=== PATIENT | female | born 1950 | race Two or more races ===

== ENCOUNTER 2017-12-31 18:15 | Emergency (ER) | payer MEDICARE ==
[~2017-12-31] VITALS: Ht 162.6 cm; Wt 72.6 kg
[2017-12-31] MEDS ORDERED: ACETAMINOPHEN 325 MG TAB PO ONE ×2 (18:55→19:00)
[2017-12-31 19:38] LABS: Urine Bacteria FEW /hpf (None Seen); Urine Blood Negative /uL (Negative); Urine Specific Gravity 1.007 (1.001-1.035); Urine WBC 9 /hpf (0 - 5)
[2017-12-31 23:10] VITALS: BP 142/76
[2017-12-31] MEDS ORDERED: KETOROLAC TROMETH 60MG/2ML VIAL IM ONE (23:30)
== END 2017-12-31 23:55 | disposition home or self-care (01) ==
LOC: ER 18:15
DX: N39.0 Urinary tract infection, site not specified (principal); I10 Essential (primary) hypertension; Z90.710 Acquired absence of both cervix and uterus
CPT/HCPCS: 81001; 96372; 99283; J1885

== ENCOUNTER 2023-05-01 19:17 | Inpatient (IN) | payer OTHER, MEDICAID ==
[~2023-05-01] VITALS: Ht 157.5 cm; Wt 68.0 kg
[2023-05-01 20:18] LABS: Basophils # (auto) 0 10 ^3/uL (0-0.2); Eosinophils # (auto) 0.1 10 ^3/uL (0-0.8); Nucleated Red Blood Cells % 0.1 %
[2023-05-01 20:20] LABS: Basophils % (auto) 0.3 % (0.0-2.0); Eosinophils % (auto) 0.5 % (0.0-7.0); Hematocrit 31.7 % (36.0-46.0); Hemoglobin 10.2 g/dL (12.2-16.2); Lymphocytes % (auto) 27.8 % (10.0-50.0); Mean Corpuscular Hemoglobin 23.1 pg (28.0-32.0); Mean Corpuscular Hgb Conc. 32.1 g/dL (32.0-36.0); Mean Corpuscular Volume 72.1 fL (80.0-100.0); Monocytes # (auto) 0.6 10 ^3/uL (0-1.3); Monocytes % (auto) 5.9 % (0.0-12.0); Neutrophils % (auto) 65.5 % (37.0-80.0); Red Cell Distribution Width 15.3 % (11.8-14.3); White Blood Cell 10.7 10^3/uL (4.4-10.8)
[2023-05-01 20:37] LABS: Alanine Aminotransferase 66 U/L (7-40); Albumin 4.5 g/dL (3.2-4.8); Alkaline Phosphatase 60 U/L (46-116); Anion Gap 13 (5-15); Aspartate Aminotransferase 91 U/L (13-40); BUN/Creatinine Ratio 9.8 (10.0-20.0); Bilirubin, Total 0.4 mg/dL (0.2-1.0); Blood Urea Nitrogen 8 mg/dL (9-23); Calcium 8.9 mg/dL (8.7-10.4); Carbon Dioxide 19 mmol/L (20-30); Chloride 83 mmol/L (98-107); Glucose 112 mg/dL (74-106); Magnesium 1.4 mg/dL (1.6-2.6); Potassium 3.9 mmol/L (3.5-5.1); Total Protein 7.2 g/dL (5.7-8.2)
[2023-05-01 20:38] LABS: INR 1.05 (0.9-1.15); Partial Thromboplastin Time 25.8 SEC (24.5-34.5)
[2023-05-01 20:41] LABS: Sodium 115 mmol/L (136-145)
[2023-05-01] MEDS ORDERED: LORazepam 2MG/ML-1ML VIAL IV ONE (20:45)
[2023-05-01] MEDS ORDERED: SODIUM CHLORIDE 0.9% 1,000 ML IV ONE (20:45)
[2023-05-01 21:20] VITALS: PULSE 84; RESP 18; O2SAT 100
[2023-05-02] MEDS ORDERED: ONDANSETRON HCL 4 MG/2 ML VIAL IV ONE
[2023-05-02] MEDS ORDERED: ACETAMINOPHEN 325 MG TAB PO ONE (01:45)
[2023-05-02] MEDS ORDERED: ONDANSETRON HCL 4 MG/2 ML VIAL IV PRN (02:00)
[2023-05-02] MEDS ORDERED: ACETAMINOPHEN 325 MG TAB PO PRN (02:00)
[2023-05-02] MEDS: SODIUM CHLORIDE 0.9% 1,000 ML IV SCH ×2 (02:17→12:00)
[2023-05-02 02:56] LABS: Chloride 90 mmol/L (98-107); Potassium 3.7 mmol/L (3.5-5.1)
[2023-05-02 02:57] LABS: Anion Gap 8 (5-15); Calcium 8.3 mg/dL (8.7-10.4); Carbon Dioxide 24 mmol/L (20-30)
[2023-05-02 03:02] LABS: Glucose 102 mg/dL (74-106)
[2023-05-02 03:07] LABS: Urine Bacteria NONE SEEN /hpf (None Seen); Urine Blood Negative /uL (Negative); Urine Clarity Clear (Clear); Urine Color Colorless (Yellow); Urine Protein, UAD Negative (Negative); Urine Specific Gravity 1.004 (1.001-1.035); Urine Urobilinogen Normal (Negative); Urine WBC <1 /hpf (0 - 5)
[2023-05-02 03:27] LABS: BUN/Creatinine Ratio 6.8 (10.0-20.0); Blood Urea Nitrogen < 5 mg/dL (9-23); Sodium 122 mmol/L (136-145)
[2023-05-02 03:49] LABS: COVID19 ANTIGEN SOFIA FIA NEGATIVE (NEGATIVE); Rapid Influenza A Negative (Negative); Rapid Influenza B Negative (Negative)
[2023-05-02 05:50] LABS: Anion Gap 9 (5-15); Carbon Dioxide 24 mmol/L (20-30); Chloride 91 mmol/L (98-107); Potassium 3.6 mmol/L (3.5-5.1); Sodium 124 mmol/L (136-145)
[2023-05-02 05:51] LABS: Calcium 8.8 mg/dL (8.5-10.1)
[2023-05-02 05:56] LABS: Glucose 89 mg/dL (74-106)
[2023-05-02 06:11] LABS: BUN/Creatinine Ratio 7.1 (10.0-20.0); Blood Urea Nitrogen < 5 mg/dL (9-23)
[2023-05-02 10:38] LABS: Anion Gap 6 (5-15); Carbon Dioxide 28 mmol/L (20-30); Chloride 94 mmol/L (98-107); Potassium 3.6 mmol/L (3.5-5.1); Sodium 128 mmol/L (136-145)
[2023-05-02 10:39] LABS: Calcium 9.1 mg/dL (8.5-10.1)
[2023-05-02 10:44] LABS: BUN/Creatinine Ratio 7.4 (10.0-20.0); Blood Urea Nitrogen 5 mg/dL (9-23); Glucose 103 mg/dL (74-106)
[2023-05-02] MEDS ORDERED: DESMOPRESSIN ACET 4 MCG/1 ML AMPULE IV SCH (11:15)
[2023-05-02] MEDS: D5W 5% 1,000 ML IV SCH ×2 (11:43→18:02)
[2023-05-02 14:49] LABS: Chloride 94 mmol/L (98-107); Potassium 3.8 mmol/L (3.5-5.1); Sodium 127 mmol/L (136-145)
[2023-05-02 14:50] LABS: Anion Gap 6 (5-15); Calcium 9.2 mg/dL (8.5-10.1); Carbon Dioxide 27 mmol/L (20-30)
[2023-05-02 14:55] LABS: Glucose 108 mg/dL (74-106)
[2023-05-02 15:04] LABS: BUN/Creatinine Ratio 6.4 (10.0-20.0); Blood Urea Nitrogen < 5 mg/dL (9-23)
[2023-05-02 18:36] LABS: Anion Gap 7 (5-15); Calcium 8.5 mg/dL (8.7-10.4); Carbon Dioxide 25 mmol/L (20-30); Chloride 93 mmol/L (98-107); Potassium 3.7 mmol/L (3.5-5.1); Sodium 125 mmol/L (136-145)
[2023-05-02 18:42] LABS: BUN/Creatinine Ratio 7.9 (10.0-20.0); Blood Urea Nitrogen 6 mg/dL (9-23); Glucose 128 mg/dL (74-106)
[2023-05-02 19:30] VITALS: PULSE 88; RESP 19; O2SAT 100
[2023-05-02] MEDS ORDERED: D5W 5% 1,000 ML IV SCH (22:00)
[2023-05-02 22:41] LABS: Chloride 90 mmol/L (98-107); Potassium 3.5 mmol/L (3.5-5.1); Sodium 122 mmol/L (136-145)
[2023-05-02 22:42] LABS: Anion Gap 7 (5-15); Carbon Dioxide 25 mmol/L (20-30)
[2023-05-02 22:43] LABS: Calcium 8.5 mg/dL (8.7-10.4)
[2023-05-02 22:47] LABS: Glucose 120 mg/dL (74-106)
[2023-05-02 22:48] LABS: BUN/Creatinine Ratio 9.3 (10.0-20.0); Blood Urea Nitrogen 7 mg/dL (9-23)
[2023-05-02] MEDS ORDERED: SODIUM CHLORIDE 0.9% 1,000 ML IV SCH (23:30)
[2023-05-03] VITALS (13 sets, daily range): BP systolic 123–143; BP diastolic 48–70; PULSE 67–78; RESP 10–18; TEMP 98–98.2; O2SAT 94–100
[2023-05-03 02:25] LABS: Chloride 92 mmol/L (98-107); Potassium 3.7 mmol/L (3.5-5.1); Sodium 121 mmol/L (136-145)
[2023-05-03 02:26] LABS: Anion Gap 4 (5-15); Carbon Dioxide 25 mmol/L (20-30)
[2023-05-03 02:31] LABS: Blood Urea Nitrogen 6 mg/dL (9-23); Glucose 100 mg/dL (74-106)
[2023-05-03 07:17] LABS: Chloride 92 mmol/L (98-107); Potassium 3.4 mmol/L (3.5-5.1); Sodium 123 mmol/L (136-145)
[2023-05-03 07:18] LABS: Anion Gap 5 (5-15); Calcium 8.5 mg/dL (8.5-10.1); Carbon Dioxide 26 mmol/L (20-30)
[2023-05-03 07:24] LABS: BUN/Creatinine Ratio 11.7 (10.0-20.0); Blood Urea Nitrogen 7 mg/dL (9-23); Glucose 113 mg/dL (74-106)
[2023-05-03] MEDS ORDERED: POTASSIUM CHL 20 Meq TABLET PO ONE (09:00)
[2023-05-03 10:39] LABS: Chloride 90 mmol/L (98-107); Potassium 3.5 mmol/L (3.5-5.1); Sodium 122 mmol/L (136-145)
[2023-05-03 10:40] LABS: Anion Gap 8 (5-15); Carbon Dioxide 24 mmol/L (20-30)
[2023-05-03 10:41] LABS: Calcium 8.5 mg/dL (8.5-10.1)
[2023-05-03 10:45] LABS: Glucose 168 mg/dL (74-106)
[2023-05-03 10:46] LABS: BUN/Creatinine Ratio 9.8 (10.0-20.0); Blood Urea Nitrogen 6 mg/dL (9-23)
[2023-05-03] MEDS: SODIUM CHLORIDE 0.9% 1,000 ML IV SCH (12:45)
[2023-05-03 14:58] LABS: Chloride 91 mmol/L (98-107); Potassium 4.2 mmol/L (3.5-5.1); Sodium 122 mmol/L (136-145)
[2023-05-03 14:59] LABS: Anion Gap 5 (5-15); Calcium 8.5 mg/dL (8.7-10.4); Carbon Dioxide 26 mmol/L (20-30)
[2023-05-03 15:04] LABS: BUN/Creatinine Ratio 7.8 (10.0-20.0); Blood Urea Nitrogen 5 mg/dL (9-23); Glucose 149 mg/dL (74-106)
[2023-05-03 19:41] LABS: Chloride 94 mmol/L (98-107); Potassium 4.2 mmol/L (3.5-5.1); Sodium 125 mmol/L (136-145)
[2023-05-03 19:42] LABS: Anion Gap 4 (5-15); Carbon Dioxide 27 mmol/L (20-30)
[2023-05-03 19:43] LABS: Calcium 8.8 mg/dL (8.7-10.4)
[2023-05-03 19:47] LABS: BUN/Creatinine Ratio 8.3 (10.0-20.0); Blood Urea Nitrogen 6 mg/dL (9-23); Glucose 113 mg/dL (74-106)
[2023-05-03 23:58] LABS: Chloride 97 mmol/L (98-107); Potassium 4.1 mmol/L (3.5-5.1); Sodium 127 mmol/L (136-145)
[2023-05-03 23:59] LABS: Anion Gap 5 (5-15); Carbon Dioxide 25 mmol/L (20-30)
[2023-05-04] LABS: Calcium 8.5 mg/dL (8.7-10.4)
[2023-05-04 00:05] LABS: Glucose 121 mg/dL (74-106)
[2023-05-04 00:11] LABS: BUN/Creatinine Ratio 7.8 (10.0-20.0); Blood Urea Nitrogen < 5 mg/dL (9-23)
[2023-05-04] MEDS: SODIUM CHLORIDE 0.9% 1,000 ML IV SCH (02:32)
[2023-05-04 08:00] VITALS: PULSE 70; RESP 15; TEMP 98.3; O2SAT 96
[2023-05-04 09:37] LABS: Chloride 102 mmol/L (98-107); Potassium 4.2 mmol/L (3.5-5.1)
[2023-05-04 09:38] LABS: Anion Gap 9 (5-15); Carbon Dioxide 23 mmol/L (20-30)
[2023-05-04 09:43] LABS: Glucose 119 mg/dL (74-106)
[2023-05-04 09:47] LABS: Sodium 134 mmol/L (136-145)
[2023-05-04 09:48] LABS: BUN/Creatinine Ratio 7.8 (10.0-20.0); Blood Urea Nitrogen < 5 mg/dL (9-23)
[2023-05-04 13:30] VITALS: BP 138/60; PULSE 75; RESP 17; O2SAT 94
== END 2023-05-04 13:40 | disposition home health service (06) | DRG 641 ==
LOC: EDBD 19:17 → EDUNIT# 19:17 → ER 19:17 → TELE 05-02 02:06
PROVIDERS: ADMIT Internal Medicine; ATTEND Internal Medicine
DX: E87.1 Hypo-osmolality and hyponatremia (principal); N39.0 Urinary tract infection, site not specified; I10 Essential (primary) hypertension; E78.5 Hyperlipidemia, unspecified; R53.81 Other malaise; Z20.822 Contact with and (suspected) exposure to COVID-19; E11.9 Type 2 diabetes mellitus without complications; Z87.440 Personal history of urinary (tract) infections; Z90.710 Acquired absence of both cervix and uterus
CPT/HCPCS: 36415; 71045; 74176; 80048; 80053; 81001; 82533; 82962; 83735; 83880; 83930; 84443; 84484; 84550; 85025; 85379; 85610; 85730; 87426; 87804; 93005; 96361; 96374; 96375; G0378; J2405

== ENCOUNTER 2023-06-22 16:27 | Inpatient (IN) | payer OTHER, MEDICAID ==
[~2023-06-22] VITALS: Ht 160 cm; Wt 66.0 kg
[2023-06-22 18:16] LABS: Urine Bacteria FEW /hpf (None Seen); Urine Blood Negative /uL (Negative); Urine Clarity Clear (Clear); Urine Color Colorless (Yellow); Urine Protein, UAD Negative (Negative); Urine Specific Gravity 1.003 (1.001-1.035); Urine Urobilinogen Normal (Negative); Urine WBC 9 /hpf (0 - 5); Urine pH 6.5 (5.0-8.0)
[2023-06-22 18:16] LABS: Basophils # (auto) 0.1 10 ^3/uL (0-0.2); Basophils % (auto) 0.8 % (0.0-2.0); Lymphocytes # (auto) 3.2 10 ^3/uL (0.4-5.4); Mean Corpuscular Volume 61.8 fL (80.0-100.0); Neutrophils # (auto) 4.8 10 ^3/uL (1.6-8.6); Neutrophils % (auto) 54.8 % (37.0-80.0); Nucleated Red Blood Cells % 0.2 %; White Blood Cell 8.8 10^3/uL (4.4-10.8)
[2023-06-22 18:18] LABS: Eosinophils # (auto) 0.1 10 ^3/uL (0-0.8); Eosinophils % (auto) 1.3 % (0.0-7.0); Hematocrit 21.8 % (36.0-46.0); Lymphocytes % (auto) 36.6 % (10.0-50.0); Mean Corpuscular Hemoglobin 17.9 pg (28.0-32.0); Monocytes # (auto) 0.6 10 ^3/uL (0-1.3); Monocytes % (auto) 6.5 % (0.0-12.0); Red Blood Cells 3.53 10^6/uL (4.0-5.20)
[2023-06-22 18:24] LABS: Red Cell Distribution Width 21.2 % (11.8-14.3)
[2023-06-22 18:30] LABS: Hemoglobin 6.3 g/dL (12.2-16.2)
[2023-06-22 18:34] LABS: Alanine Aminotransferase 37 U/L (7-40); Albumin 4.7 g/dL (3.2-4.8); Alkaline Phosphatase 88 U/L (46-116); Anion Gap 10 (5-15); Aspartate Aminotransferase 46 U/L (13-40); BUN/Creatinine Ratio 14.1 (10.0-20.0); Blood Urea Nitrogen 12 mg/dL (9-23); Calcium 9.7 mg/dL (8.5-10.1); Carbon Dioxide 25 mmol/L (20-30); Chloride 102 mmol/L (98-107); Glucose 94 mg/dL (74-106); Potassium 4.3 mmol/L (3.5-5.1); Sodium 137 mmol/L (136-145)
[2023-06-22 18:35] LABS: Bilirubin, Total 0.4 mg/dL (0.2-1.0); Total Protein 7.3 g/dL (5.7-8.2)
[2023-06-22] MEDS ORDERED: ACETAMINOPHEN 325 MG TAB PO PRN (19:45)
[2023-06-22] MEDS ORDERED: ONDANSETRON HCL 4 MG/2 ML VIAL IV PRN ×2 (19:45→21:45)
[2023-06-22] MEDS ORDERED: SODIUM CHLORIDE 0.9% 1,000 ML IV SCH (19:45)
[2023-06-22] MEDS ORDERED: levoFLOXacin 500MG 100 ML IV ONE (19:45)
[2023-06-22 19:52] LABS: Anisocytosis Slight; Hypochromia Marked; Platelet Estimate Adequate
[2023-06-22] MEDS: cefTRIAXone 1GM/50ML D5W 50 ML IV ONE (21:05)
[2023-06-22 22:12] LABS: % Iron Saturation 2.7 % (15-50)
[2023-06-22 22:20] LABS: Monocytes # (auto) 0.5 10 ^3/uL (0-1.3); Neutrophils # (auto) 4.5 10 ^3/uL (1.6-8.6)
[2023-06-22 22:21] LABS: Basophils # (auto) 0 10 ^3/uL (0-0.2); Basophils % (auto) 0.5 % (0.0-2.0); Eosinophils # (auto) 0.1 10 ^3/uL (0-0.8); Eosinophils % (auto) 1.8 % (0.0-7.0); Hematocrit 20.4 % (36.0-46.0); Lymphocytes # (auto) 2.9 10 ^3/uL (0.4-5.4); Lymphocytes % (auto) 35.6 % (10.0-50.0); Mean Corpuscular Hemoglobin 18.1 pg (28.0-32.0); Mean Corpuscular Hgb Conc. 29.4 g/dL (32.0-36.0); Mean Corpuscular Volume 61.6 fL (80.0-100.0); Monocytes % (auto) 6.2 % (0.0-12.0); Neutrophils % (auto) 55.9 % (37.0-80.0); Red Blood Cells 3.31 10^6/uL (4.0-5.20)
[2023-06-22 22:29] LABS: Folate (Folic Acid) > 24.00 ng/mL (>5.38)
[2023-06-22 22:39] LABS: Red Cell Distribution Width 21.2 % (11.8-14.3)
[2023-06-22] MEDS: levoFLOXacin 500MG 100 ML IV ONE (23:15)
[2023-06-22] MEDS: SODIUM CHLORIDE 0.9% 1,000 ML IV SCH (23:20)
[2023-06-23] VITALS (16 sets, daily range): BP systolic 131–150; BP diastolic 54–81; PULSE 63–87; RESP 15–20; TEMP 98–98.7; O2SAT 96–99
[2023-06-23] MEDS ORDERED: METF-370 PO (06:13)
[2023-06-23] MEDS ORDERED: LISI10TA34 PO (06:14)
[2023-06-23 08:06] LABS: Basophils # (auto) 0.1 10 ^3/uL (0-0.2); Basophils % (auto) 1.1 % (0.0-2.0); Eosinophils # (auto) 0.1 10 ^3/uL (0-0.8); Eosinophils % (auto) 1.7 % (0.0-7.0); Hematocrit 27.5 % (36.0-46.0); Hemoglobin 8.3 g/dL (12.2-16.2); Lymphocytes # (auto) 2.1 10 ^3/uL (0.4-5.4); Lymphocytes % (auto) 30.7 % (10.0-50.0); Mean Corpuscular Hemoglobin 20.4 pg (28.0-32.0); Mean Corpuscular Hgb Conc. 30.1 g/dL (32.0-36.0); Mean Corpuscular Volume 67.9 fL (80.0-100.0); Monocytes # (auto) 0.7 10 ^3/uL (0-1.3); Monocytes % (auto) 10.5 % (0.0-12.0); Neutrophils # (auto) 3.9 10 ^3/uL (1.6-8.6); Nucleated Red Blood Cells % 0.2 %; Red Blood Cells 4.05 10^6/uL (4.0-5.20); Red Cell Distribution Width 24.7 % (11.8-14.3)
[2023-06-23 08:22] LABS: INR 1.09 (0.9-1.15); Partial Thromboplastin Time 22.8 SEC (24.5-34.5); Prothrombin Time 11.4 sec (9.3-11.8)
[2023-06-23] MEDS: DOCUSATE SOD 100 MG CAP PO SCH (10:42)
[2023-06-23] MEDS: ASCORBIC ACID 500 MG TAB PO SCH (10:42)
[2023-06-23] MEDS: ACETAMINOPHEN 325 MG TAB PO PRN (10:42)
[2023-06-23] MEDS: IRON SUCROSE COMPLEX 100 ML IV SCH (10:43)
[2023-06-23] MEDS: LACTULOSE 20Gm/30ML SOLN PO ONE (12:20)
[2023-06-23] MEDS: FERROUS SULFATE 325mg EC TAB PO SCH (14:45)
[2023-06-23] MEDS: InsuLIN REG 1unit/0.01ml Soln (100units/ml) SC SCH (17:00)
[2023-06-23] MEDS ORDERED: DEXTROSE (50%) 50ML SYRG IV PRN (17:00)
[2023-06-23] MEDS: ACCU-CHEK COMFORT CURVE STRIP VI SCH (17:08)
[2023-06-24] VITALS (7 sets, daily range): BP systolic 143–159; BP diastolic 51–73; PULSE 66–96; RESP 17–20; TEMP 98.2–98.7; O2SAT 95–98
[2023-06-24 07:07] LABS: Basophils # (auto) 0 10 ^3/uL (0-0.2); Basophils % (auto) 0.6 % (0.0-2.0); Eosinophils # (auto) 0.3 10 ^3/uL (0-0.8); Hemoglobin 8.2 g/dL (12.2-16.2); White Blood Cell 7.2 10^3/uL (4.4-10.8)
[2023-06-24 07:09] LABS: Hematocrit 26.5 % (36.0-46.0); Lymphocytes # (auto) 2.5 10 ^3/uL (0.4-5.4); Lymphocytes % (auto) 34.4 % (10.0-50.0); Mean Corpuscular Hgb Conc. 30.9 g/dL (32.0-36.0); Mean Corpuscular Volume 68.1 fL (80.0-100.0); Monocytes # (auto) 0.7 10 ^3/uL (0-1.3); Monocytes % (auto) 9.7 % (0.0-12.0); Neutrophils # (auto) 3.7 10 ^3/uL (1.6-8.6); Neutrophils % (auto) 51.3 % (37.0-80.0); Nucleated Red Blood Cells % 0.3 %; Red Blood Cells 3.89 10^6/uL (4.0-5.20)
[2023-06-24 07:34] LABS: Red Cell Distribution Width 24.4 % (11.8-14.3)
[2023-06-24 09:16] LABS: Hypochromia Moderate; Platelet Estimate Adequate
[2023-06-24 09:17] LABS: Anisocytosis Moderate
[2023-06-24] MEDS: levoFLOXacin 500 MG TAB PO SCH (09:36)
[2023-06-24] MEDS: LISINOPRIL 10 MG TAB PO SCH (09:37)
[2023-06-24] MEDS: GOLYTELY 4L KIT PO ONE ×2 (11:00→21:39)
[2023-06-24] MEDS: HYDROCORTONE 1% TOPICAL CREAM 30 GM TUBE TOP SCH (18:39)
[2023-06-24] MEDS: hydrALAZINE HCL 20 MG/ML VL IV PRN (22:56)
[2023-06-25] VITALS (9 sets, daily range): BP systolic 136–155; BP diastolic 47–74; PULSE 64–97; RESP 16–18; TEMP 98.2–99; O2SAT 96–100
[2023-06-25] MEDS ORDERED: LIDOCAINE VISCOUS 2% 15ML UD ONE (07:15)
[2023-06-25] MEDS ORDERED: SODIUM CHLORIDE LOCK 10 ML ONE (07:15)
[2023-06-25] MEDS ORDERED: diphenhdrAMINE HCL 50 MG/1 ML VL ONE (07:16)
[2023-06-25] MEDS ORDERED: MIDAZOLAM HCL 5 MG/ML-1ML VIAL ONE (07:16)
[2023-06-25] MEDS ORDERED: fentaNYL CITRATE 100 MCG/2 ML VL ONE (07:16)
[2023-06-25] MEDS ORDERED: MIDAZOLAM HCL 2MG/2ML 2ml VIAL (1mg/ml) ONE (07:49)
[2023-06-25 12:15] LABS: Alanine Aminotransferase 26 U/L (7-40); Alkaline Phosphatase 64 U/L (46-116); Anion Gap 7 (5-15); Aspartate Aminotransferase 37 U/L (13-40); Calcium 9.2 mg/dL (8.5-10.1); Carbon Dioxide 26 mmol/L (20-30); Chloride 109 mmol/L (98-107); Glucose 91 mg/dL (74-106); Potassium 3.7 mmol/L (3.5-5.1); Sodium 142 mmol/L (136-145)
[2023-06-25 12:16] LABS: Albumin 4.3 g/dL (3.2-4.8); BUN/Creatinine Ratio 6.8 (10.0-20.0); Bilirubin, Total 0.7 mg/dL (0.2-1.0); Blood Urea Nitrogen < 5 mg/dL (9-23)
[2023-06-25] MEDS: IOHEXOL 300 MG/ML 100ML BOTTLE IJ ONE (17:22)
[2023-06-26 05:00] VITALS: BP 124/59; PULSE 85; RESP 16; TEMP 98.3; O2SAT 95
[2023-06-26 08:00] VITALS: BP 129/55; PULSE 63; PULSE 68; RESP 18; TEMP 98.9; O2SAT 96
[2023-06-26 08:54] VITALS: BP 129/55; PULSE 68; RESP 18; TEMP 98.9; O2SAT 96
[2023-06-26 13:00] VITALS: BP 143/60; PULSE 80; RESP 18; TEMP 98.6; O2SAT 94
[2023-06-26] MEDS ORDERED: ASCO500T11 PO (13:58)
[2023-06-26] MEDS ORDERED: DOCU-265 PO (13:58)
[2023-06-26] MEDS ORDERED: PANT40T PO (13:58)
[2023-06-26] MEDS ORDERED: LEVO500T91 PO (13:58)
[2023-06-26] MEDS ORDERED: FER325T PO (13:58)
== END 2023-06-26 15:10 | disposition home health service (06) | DRG 812 ==
LOC: ER 16:27 → TELE 21:41 → TELE-EAST 06-23 06:00
PROVIDERS: ADMIT Internal Medicine; ATTEND Internal Medicine
PROC: 30233N1 Transfusion of Nonautologous Red Blood Cells into Peripheral Vein, Percutaneous Approach (ICD-10-PCS; 2023-06-23)
PROC: 0DBH8ZX Excision of Cecum, Via Natural or Artificial Opening Endoscopic, Diagnostic (ICD-10-PCS; 2023-06-25)
PROC: 0W3P8ZZ Control Bleeding in Gastrointestinal Tract, Via Natural or Artificial Opening Endoscopic (ICD-10-PCS; 2023-06-25)
PROC: 0DB78ZX Excision of Stomach, Pylorus, Via Natural or Artificial Opening Endoscopic, Diagnostic (ICD-10-PCS; principal; 2023-06-25 07:37)
DX: D50.9 Iron deficiency anemia, unspecified (principal); E87.1 Hypo-osmolality and hyponatremia; K22.10 Ulcer of esophagus without bleeding; N39.0 Urinary tract infection, site not specified; K29.70 Gastritis, unspecified, without bleeding; E11.9 Type 2 diabetes mellitus without complications; E56.9 Vitamin deficiency, unspecified; E78.5 Hyperlipidemia, unspecified; K44.9 Diaphragmatic hernia without obstruction or gangrene; K63.5 Polyp of colon; K55.20 Angiodysplasia of colon without hemorrhage; I10 Essential (primary) hypertension; K64.8 Other hemorrhoids; Z80.0 Family history of malignant neoplasm of digestive organs; Z63.4 Disappearance and death of family member; Z90.710 Acquired absence of both cervix and uterus
CPT/HCPCS: 36415; 36430; 43239; 45380; 45382; 71045; 74177; 80053; 81001; 82270; 82607; 82746; 82962; 83540; 83550; 84484; 85025; 85610; 85730; 86850; 86900; 86901; 86920; 99291; G0378; J1756; J1956; J2250